=== PATIENT | male | born 1990 | race Caucasian/White ===

== ENCOUNTER 2020-03-19 15:42 | Emergency (ER) | payer OTHER ==
[2020-03-19] MEDS ORDERED: NORMAL SALINE 1000 ML 1,000 ML IV ONE ×2 (18:08→23:47)
--- NOTE | 2020-03-19 18:10 | ER Document Report ---
ED Medical Screen (RME) - General Chief Complaint: Abdominal Pain Stated Complaint: ABDOMINAL PAIN Time Seen by Provider: 03/19/20 18:06 Mode of Arrival: Wheelchair Information source: Patient Notes: 29-year-old male presented to ED for epigastric pain for 3 days. He states it became much worse around 2-2 30. He states he has had pancreatitis in the past and this feels exactly the same. He states last time when he had pancreatitis he had been drinking but this time he has not been drinking. He is [employer]. He states he does drink about every other month but does not smoke or use any illicit drugs. He states he does also have elevated triglycerides which contributed to his pancreatitis in the past. Have ordered blood urine CT abdomen pelvis IV contrast. I have greeted and performed a rapid initial assessment of this patient. A comprehensive ED assessment and evaluation of the patient, analysis of test results and completion of medical decision making process will be conducted by an additional ED providers. - Related Data Allergies/Adverse Reactions: cats Allergy (Uncoded 03/19/20 18:06) Physical Exam - Vital signs Vitals: Temp Pulse Resp BP Pulse Ox 97.8 F 58 L 18 108/71 97 03/19/20 16:17 03/19/20 16:17 03/19/20 16:17 03/19/20 16:17 03/19/20 16:17 Course - Vital Signs Vital signs: Temp Pulse Resp BP Pulse Ox 97.8 F 58 L 18 108/71 97 03/19/20 16:17 03/19/20 16:17 03/19/20 16:17 03/19/20 16:17 03/19/20 16:17
[2020-03-19] MEDS ORDERED: ONDANSETRON 4 MG TAB.RAPDIS PO ONE (18:28)
[2020-03-19] MEDS ORDERED: ACETAMINOPHEN 325 MG TABLET PO ONE (18:28)
[2020-03-19] MEDS ORDERED: ONDANSETRON HCL INJ/PF 4 MG/2 ML SDV IV ONE (18:34)
[2020-03-19] MEDS ORDERED: MORPHINE SULFATE 10 MG/ML INJ IV ONE (18:35)
[2020-03-19 18:43] LABS: ABSOLUTE EOSINOPHILS # (AUTO) 0.1 10^3/uL (0.0-0.6); ABSOLUTE LYMPHOCYTES (AUTO) 0.8 10^3/uL (0.5-4.7); ABSOLUTE MONOCYTES (AUTO) 0.6 10^3/uL (0.1-1.4); ABSOLUTE NEUT (AUTO) 9.3 10^3/uL (1.7-8.2); BASOPHILS % (AUTO) 0.2 % (0-2); EOSINOPHILS % (AUTO) 0.7 % (0-6); HEMATOCRIT 52.4 % (37.9-51.0); HEMOGLOBIN 18.1 g/dL (13.5-17.0); LYMPHOCYTES % (AUTO) 7.1 % (13-45); MEAN CORPUSCULAR HEMOGLOBIN 33.4 pg (27.0-33.4); MEAN CORPUSCULAR HGB CONC 34.6 g/dL (32.0-36.0); MEAN CORPUSCULAR VOLUME 97 fl (80-97); MONOCYTES % (AUTO) 5.6 % (3-13); PLATELET COUNT 136 10^3/uL (150-450); RED BLOOD COUNT 5.43 10^6/uL (4.35-5.55); RED CELL DISTRIBUTION WIDTH 12.6 % (11.5-14.0); SEGMENTED NEUTROPHILS % (AUTO) 86.4 % (42-78); TOTAL CELLS COUNTED % (AUTO) 100 %; WHITE BLOOD COUNT 10.8 10^3/uL (4.0-10.5)
[2020-03-19 19:09] LABS: ALBUMIN 5.3 g/dL (3.5-5.0); ALKALINE PHOSPHATASE 96 U/L (38-126); ANION GAP 19 (5-19); ASPARTATE AMINO TRANSFERASE 109 U/L (17-59); BILIRUBIN,DIRECT 0.2 mg/dL (0.0-0.4); BILIRUBIN,TOTAL 1.2 mg/dL (0.2-1.3); BLOOD UREA NITROGEN 14 mg/dL (7-20); CALCIUM 10.3 mg/dL (8.4-10.2); CARBON DIOXIDE 25 mmol/L (22-30); CHLORIDE 92 mmol/L (98-107); GLUCOSE 125 mg/dL (75-110); POTASSIUM 4.3 mmol/L (3.6-5.0)
[2020-03-19 19:28] LABS: APPEARANCE,URINE CLEAR; BILIRUBIN,URINE NEGATIVE (NEGATIVE); COLOR,URINE AMBER; GLUCOSE, URINE NEGATIVE (NEGATIVE); KETONES,URINE 80 mg/dL (NEGATIVE); LEUKOCYTE ESTERASE,URINE NEGATIVE (NEGATIVE); NITRITE,URINE NEGATIVE (NEGATIVE); PROTEIN,URINE 100 mg/dL (NEGATIVE); URINE SPECIFIC GRAVITY 1.027
--- NOTE | 2020-03-19 19:47 | ER Document Report ---
ED GI/ - General Chief Complaint: Abdominal Pain Stated Complaint: ABDOMINAL PAIN Time Seen by Provider: 03/19/20 18:06 Mode of Arrival: Wheelchair Information source: Patient Notes: This 29-year-old man presents to the emergency department with a history of epigastric abdominal pain which began on Sunday. He has had a history of pancreatitis in the past states that he put himself on clear liquids on Sunday and he seemed to be doing a bit better. He ate a half a can of chicken noodle soup states that his pain became very severe afterwards and he has now presented to the emergency department for further evaluation and treatment. He admits to drinking earlier this week prior to the onset of his symptoms. He denies new medication use. - Related Data Allergies/Adverse Reactions: cats Allergy (Uncoded 03/19/20 18:06) Home Medications: cholesterol Past Medical History - General Information source: Patient - Social History Smoking Status: Never Smoker Chew tobacco use (# tins/day): No Frequency of alcohol use: Occasional Drug Abuse: None Family History: Reviewed & Not Pertinent Patient has homicidal ideation: No Review of Systems - Review of Systems Notes: Constitutional: Negative for fever. HENT: Negative for sore throat. Eyes: Negative for visual changes. Cardiovascular: Negative for chest pain. Respiratory: Negative for shortness of breath. Gastrointestinal: + Epigastric abdominal pain Genitourinary: Negative for dysuria. Musculoskeletal: Negative for back pain. Skin: Negative for rash. Neurological: Negative for headaches, weakness or numbness. 10 point ROS negative except as marked above and in HPI. Physical Exam - Vital signs Vitals: Temp Pulse Resp BP Pulse Ox 97.8 F 58 L 18 108/71 97 03/19/20 16:17 03/19/20 16:17 03/19/20 16:17 03/19/20 16:17 03/19/20 16:17 - Notes Notes: PHYSICAL EXAMINATION: Physical Exam: General: Well-nourished well-developed in no acute distress HEENT: NC/AT, pupils equal round and reactive to light, MM moist,nares clear, oropharynx clear, airway patent Neck: supple, no adenopathy, no masses. Good range of motion Lungs: clear, no wheezing, no rales no rhonchi CVS: Regular rate and rhythm no murmur gallop or rub Abdomen: Soft, + epigastric tenderness, + guarding, no rebound, no masses, no hepatosplenomegaly Ext: No edema, clubbing or cyanosis. Neuro: Alert and responsive, moving all 4 extremities on command, cranial nerves intact, no focal findings Skin: Intact no open lesions, no rash PSYCH: Normal mood, normal affect. Course - Re-evaluation Re-evalutation: 03/19/20 23:25 Contacted the hospitalist [facility] about admitting the patient to the hospital, he quickly noted that patient is active and 1 when the [facility] has been contacted. I contacted the [facility] and Dr. Greenberg has agreed to accept the patient in transfer to the emergency department to the emergency department. I explained to the patient that his active status he is being transferred to [facility] for further evaluation and treatment. - Vital Signs Vital signs: Temp Pulse Resp BP Pulse Ox 98.4 F 102 H 20 138/89 H 100 03/20/20 00:55 03/20/20 00:55 03/20/20 00:55 03/20/20 00:55 03/20/20 00:55 - Laboratory Result Diagrams: 03/19/20 18:25 03/19/20 18:25 Laboratory results interpreted by me: 03/19/20 03/19/20 03/19/20 18:25 18:25 19:00 WBC 10.8 H Hgb 18.1 H Hct 52.4 H Plt Count 136 L Lymph % (Auto) 7.1 L Absolute Neuts (auto) 9.3 H Seg Neutrophils % 86.4 H Sodium 135.6 L Chloride 92 L Glucose 125 H Calcium 10.3 H AST 109 H ALT 114 H Albumin 5.3 H Lipase 36259.6 H Urine Protein 100 H Urine Ketones 80 H Urine Urobilinogen 4.0 H 03/19/20 19:47 I have reviewed laboratory data and used this information for the treatment decisions regarding the patient. - Diagnostic Test Radiology reviewed: Image reviewed, Reports reviewed Radiology results interpreted by me: 03/19/20 21:47 Abdomen/Pelvis CT 03/19/20 18:07 IMPRESSION: Findings consistent with acute pancreatitis as above. There is hepatic steatosis. There is also mild increased attenuation within the gallbladder which could be due to gallbladder wall calcification or cholelithiasis. TECHNICAL DOCUMENTATION: Quality ID # 436: Final reports with documentation of one or more dose reduction techniques (e.g., Automated exposure control, adjustment of the mA and/or kV according to patient size, use of iterative reconstruction technique) copyright 2011 [facility] [email or web address]- All Rights Reserved Discharge - Discharge Clinical Impression: Acute pancreatitis Qualifiers: Pancreatitis type: unspecified pancreatitis type Acute pancreatitis complication: unspecified Qualified Code(s): K85.90 - Acute pancreatitis without necrosis or infection, unspecified Condition: Good [facility]position: [facility]
[2020-03-19] MEDS ORDERED: HYDROMORPHONE HCL INJ/PF 2 MG/ML AMPULE IV ONE ×2 (20:14→22:13)
--- NOTE | 2020-03-19 20:52 | RADIOLOGY REPORT (SQ) ---
EXAM DESCRIPTION: CT ABDOMEN PELVIS WITH IV CONTRAST COMPLETED DATE/TME: 03/19/2020 20:19 CLINICAL HISTORY: 29 years, Male, Upper abdominal pain history of pancreatitis COMPARISON: None. TECHNIQUE: Postcontrast images of the abdomen and pelvis were obtained utilizing 100 mL Omnipaque 350 intravenously. Images stored on PACS. All CT scanners at this facility use dose modulation, iterative reconstruction, and/or weight based dosing when appropriate to reduce radiation dose to as low as reasonably achievable (ALARA). [facility]: Dose Right [facility]: CareDose [facility]: Dose Right [facility]: Teradose 4D [facility]: zappit LIMITATIONS: None. FINDINGS: Visualized lung bases are clear. Heart size is normal. No effusions are identified within the lower chest. Pancreas is heterogeneously enlarged and moderate peripancreatic fluid and fat stranding are identified. There is some fluid extending into the right lower quadrant and pelvis as well. Finds are consistent with acute pancreatitis. There is no evidence of pancreatic necrosis or pseudocyst. Portal vein, splenic vein, superior mesenteric vein are patent. There is fatty infiltration of the liver. Gallbladder is mildly dilated at 3.6 cm in caliber. No definite gallbladder wall thickening or pericholecystic fluid is seen. Small amount of increased density in the region of the gallbladder body and neck could represent gallstones or gallbladder wall calcification. The kidneys, spleen, and adrenal glands are within normal limits. There is no abdominal aortic aneurysm. There is no evidence of bowel obstruction. The appendix is within normal limits. No abdominal aortic aneurysm. No bony anomaly. IMPRESSION: Findings consistent with acute pancreatitis as above. There is hepatic steatosis. There is also mild increased attenuation within the gallbladder which could be due to gallbladder wall calcification or cholelithiasis. TECHNICAL DOCUMENTATION: Quality ID # 436: Final reports with documentation of one or more dose reduction techniques (e.g., Automated exposure control, adjustment of the mA and/or kV according to patient size, use of iterative reconstruction technique) copyright 2011 [employer]- All Rights Reserved
[2020-03-20] MEDS ORDERED: HYDROMORPHONE HCL INJ/PF 2 MG/ML AMPULE IV ONE (00:05)
[2020-03-20 01:00] VITALS: BP 138/89
== END 2020-03-20 01:11 ==
LOC: ER 15:42
DX: K85.90 Acute pancreatitis without necrosis or infection, unspecified (principal); R10.13 Epigastric pain; Z79.899 Other long term (current) drug therapy
CPT/HCPCS: 96376; 99285; 96361; 96374; 96375; 36415; 83690; 85025; 80053; 81001; 74177; J2270; J1170 ×2; J2405; J7030